=== PATIENT | female | born 1985 | race Caucasian/White ===

== ENCOUNTER 2024-05-29 13:10 | Emergency (ER) | payer OTHER, SELFPAY ==
[2024-05-29] VITALS (9 sets, daily range): BP systolic 127–171; BP diastolic 69–112; PULSE 78–94
[2024-05-29 13:55] LABS: % Basophils 0.7 % (0-2); % Eosinophils 0.7 % (0-6); % Immature Granulocytes 0.3 % (0-0.5); % Lymphocytes 34.3 % (20.5-51.1); % Monocytes 8.9 % (1.7-9.3); % Neutrophils 55.1 % (42.2-75.2); Absolute Lymphocytes 2.1 10^3/uL (1.2-3.4); Absolute Monocytes 0.5 10^3/uL (0.1-0.6); Absolute Neutrophils 3.4 10^3/uL (1.4-6.5); Hematocrit 37.2 % (37.0-47.0); Mean Corp Hgb Conc. 32.3 g/dL (33.0-37.0); Mean Corpuscular Hgb 25.5 pg (27.0-31.0); Nucleated Red Blood Cells % 0 %; Platelet Count 345 10^3/uL (130-400); Red Blood Cell Count 4.71 10^6/uL (4.20-5.40); Red Cell Dist. Width 13.7 % (11.5-14.5); White Blood Cell Count 6.1 10^3/uL (4.8-10.8)
[2024-05-29 14:04] LABS: HCG, Serum Qualitative Screen Negative
[2024-05-29 14:07] LABS: ALT (SGPT) 40 U/L (0-35); AST (SGOT) 31 U/L (14-36); Albumin 4.2 g/dl (3.5-5.0); Alkaline Phosphatase 61 U/L (38-126); Blood Urea Nitrogen 9 mg/dl (7-17); Calcium 9.4 mg/dl (8.4-10.2); Carbon Dioxide 25 mmol/L (22-30); Chloride 103 mmol/L (98-107); Glucose 101 mg/dl (70-99); Potassium 4.4 mmol/L (3.5-5.1); Sodium 135 mmol/L (135-145); Total Bilirubin 0.5 mg/dl (0.2-1.3); Total Protein 7.1 g/dl (6.3-8.2); eGFR > 60.00
--- NOTE | 2024-05-29 17:01 | ED.GENMED ---
History of Present Illness
General
Chief Complaint: Dizziness
Source: patient
Exam Limitations: none
Time Seen by Provider: 05/29/24 17:01
Nursing documentation reviewed up to this point in time: agreed with
History of Present Illness
History of Present Illness:
This is a 38-year-old female with past medical history of anxiety, depression presents emergency department today with concerns of multiple spells of dizziness and lightheadedness. Patient reports that this all started around a week ago. She
reports she was standing from a sitting position when she got an onset of lightheadedness, blurry vision, and tremors, feeling like she was about to fall faint. She reports that she has been having daily episodes of this for the past week. They
last 30 seconds to a minute. She gets 2 episodes per day. She states that they seem to come on after walking up a period of time but states that they can come on randomly as well. She denies any recent head or neck trauma. A few days ago, she
started developing a constant frontal headache as well that does not resolve with Tylenol or Motrin. She denies any nausea or vomiting. She denies any neck pain. She denies any fevers or chills. She denies any coughing, chest pain, or shortness
of breath. She denies any redness of swelling in his legs. She called her PCP who advised her to report to the emergency department for further workup.
Review of Systems
Review of Systems
All Other Systems: ROS reviewed and negative except as documented in HPI and ROS
Phy Exam
Physical Exam
Physical Exam:
General: Patient is well appearing and in no acute distress; non-toxic
Skin: Warm and dry, no rashes or lesions
Head: Normocephalic, atraumatic
Eyes: Sclera non-icteric. EOMs intact. No nystagmus.
Cardiac: Regular rate and rhythm, no murmur
Peripheral Vascular: No lower extremity swelling or edema
Pulm: Normal respiratory effort, no wheezes, rales, or rhonchi
Neuro: CN II-XII intact, no focal neurologic deficits. Normal finger to nose, heel to land testing intact.
Psychiatric: Appropriate mood and affect.
Course
Orders/Labs/Results
Orders:
Orders
05/29/24 13:33
Electrocardiogram (*1) Urgent
Reason for Study: Vertigo / Dizzy
CT Head W/o Iv Contrast Urgent
Comment:
Reason For Exam: dizzy
05/29/24 13:34
EKG- Treatment ONCE
Test Result ONCE
05/29/24 13:42
Complete Blood Count/With Diff Urgent
Comprehensive Metabolic Panel Urgent
HCG, Serum Qualitative Screen Urgent
05/29/24 17:18
Orthostatic VS- Treatment ONCE
Abnormal Lab Results
05/29/24
13:42
MCV 79.0 L fL
(81.0-99.0)
MCH 25.5 L pg
(27.0-31.0)
MCHC 32.3 L g/dL
(33.0-37.0)
Glucose 101 H mg/dl
(70-99)
ALT 40 H U/L
(0-35)
05/29/24 13:42
05/29/24 13:42
Vital Signs
Initial and Last Documented VS:
Initial Vital Signs
Temp Pulse Resp BP Pulse Ox
98.8 F 88 18 147/112 98
05/29/24 13:29 05/29/24 13:29 05/29/24 13:29 05/29/24 13:29 05/29/24 13:29
Last Documented Vital Signs
Temp Pulse Resp BP Pulse Ox
97.8 F 82 16 143/90 98
05/29/24 16:35 05/29/24 16:35 05/29/24 16:35 05/29/24 16:35 05/29/24 16:35
MDM/Problems Addressed
Differential Diagnosis Includes:
ddx include orthostatic hypotension, electrolyte derangement, dysrhythmia, malignancy, subarachnoid hemorrhage, panic attack
MDM/Problems Addressed:
38 y/o male with hx of anxiety, depression presents to the ER today with concerns of dizziness, lightheadedness. She had one episode here while walking to CAT scan but she has not had any other episodes since. On exam, she is well appearing and in
no acute distress. She has no focal neurologic deficits. Orthostatics negative. CT scan negative. Suspect component of dehydration. Discussed follow-up with PCP and return precautions. Patient stable for discharge.
*Pulse Oximetry
Patient hypoxic: no
*Critical Care Note
Total Time (30-74mins, 75-104mins- exclusive of procedures): Not Applicable
Data Reviewed
Review of Other/Old Records Reveals: Records (Reviewed [facility] no previous ER physician documentation or discharge summaries to review)
Source: patient and records
Patient Management
Escalation/DeEscalation of care consider admission/obs:
Admit not indicated, patient stable for discharge
reviewed case with my attending
ED Attending Note
-
Portions of this chart may have been created with voice recognition software.� Occasional wrong word or��sound alike� substitutions may have occurred due to the inherent limitations of voice recognition software.
Discharge Plan
Departure
Patient Disposition: Home (Routine Discharge)
Date of Disposition: 05/29/24
Time of Disposition: 18:16
Patient with high blood pressure during this ER visit?: Yes
Condition: Good
Discharge Problem:
Dizziness, Pre-syncope
Instructions: Dizziness, Nonvertigo, (DC), BLOOD PRESSURE
Referrals:
NATHAN KILGORE DO [Family Provider] -
Activity Restrictions/Additional Instructions:
Your CT scan of the head was normal.
CBC and CMP unremarkable.
Please follow-up with your primary care provider in 1 week for reassessment. Please continue to monitor your symptoms.
PLEASE RETURN TO EMERGENCY DEPARTMENT SHOULD YOU DEVELOP ANY ACUTE WORSENING OF YOUR SYMPTOMS, FAINTING SPELLS, CHEST PAIN, SHORTNESS OF BREATH, OR ANY OTHER SIGNS OR SYMPTOMS WORRISOME TO YOU.
Interventions
Interventions:
*Risk Screen - Suicide Last Done: 05/29/24 13:29
*General Assessment Last Done: 05/29/24 13:29
*Neglect/Abuse Screening Last Done: 05/29/24 13:29
*ED COVID-19 Vaccine History Last Done: 05/29/24 13:29
ED- Neurological Assessment Last Done: 05/29/24 18:25
Discharge Date and Time
Print Language: IRAQI
== END 2024-05-29 18:38 | disposition home or self-care (01) ==
LOC: EMR 13:10
PROVIDERS: Student in an Organized Health Care Education/Training Program; EMERGENCY PHYSICIAN Emergency Medicine; FAMILY PHYSICIAN Family Medicine
DX: R42 Dizziness and giddiness (principal); R55 Syncope and collapse
CPT/HCPCS: 99284; 70450; 80053; 84703; 85025; 93005